=== PATIENT | female | born 1980 | race Caucasian/White ===

== ENCOUNTER 2021-01-09 21:16 | Emergency (ER) | payer MEDICAID ==
[~2021-01-09] VITALS: Ht 160 cm; Wt 61.0 kg
[2021-01-09] MEDS ORDERED: ONDANSETRON HCL 4MG/2ML INJ IV STA (22:55)
[2021-01-09] MEDS ORDERED: SODIUM CHLORIDE 0.9% 1,000 ML IV ONE (23:00)
[2021-01-09 23:48] LABS: BASOPHILS % 0.3 % (0.0-2.0); EOSINOPHILS % 1.5 % (0.0-5.0); HEMATOCRIT. 36.8 % (36.0-48.0); MEAN CORPUSCULAR HEMOGLOBIN 31.1 pg (28.0-32.0); MEAN CORPUSCULAR VOLUME 87.9 fL (81.0-99.0); MONOCYTES % 6.1 % (2.0-8.0); NEUTROPHILS % 58.1 % (40.0-76.0); PLATELET 218 x1000/uL (130-400); RED BLOOD CELL COUNT 4.18 mill/uL (4.2-5.4); RED CELL DISTRIBUTION WIDTH 12.8 % (11.6-14.6)
[2021-01-09 23:57] LABS: CHLORIDE 108 mEq/L (98-107)
[2021-01-10] MEDS ORDERED: ONDA4TAB5 MT (02:39)
[2021-01-10 02:49] VITALS: BP 120/80
== END 2021-01-10 02:50 | disposition home or self-care (01) ==
LOC: ER 21:16
DX: R11.2 Nausea with vomiting, unspecified (principal); R10.13 Epigastric pain; J45.909 Unspecified asthma, uncomplicated; E86.0 Dehydration; F12.10 Cannabis abuse, uncomplicated; Z79.899 Other long term (current) drug therapy
CPT/HCPCS: 36415; 80053; 85025; 96361; 96374; 99283; J2405; J7030